=== PATIENT | male | born 1970 | race Caucasian/White ===

== ENCOUNTER 2017-02-15 14:56 | Emergency (ER) | payer OTHER ==
[~2017-02-15] VITALS: Ht 190.5 cm; Wt 90.7 kg
--- NOTE | 2017-02-15 15:31 | PHYS DOC ---
Adult General Chief Complaint Chief Complaint: NEAR SYCOPE HPI HPI Patient is a 47-year-old male who presents ambulatory to the ED complaining that he just "doesn't feel right". He lives in this area. He had been driving to the store and he began to feel unwell, felt like he might pass out. He had "tunnel vision". He pulled over for a little bit at 1 point. He about some Powerade and some orange juice and drink some, not sure if that really helped. He does not have any pain, denies headache, denies chest pain, states he does not really have abdominal pain but he feels kind of like "acid reflux, which she does have from time to time. The patient did not eat breakfast today. He drank 3 large cups of coffee. All he's had to eat is a half a bag of corn nuts. This is not terribly unusual for him. He does sometimes overdo the coffee and he gets shaky, that's not what he feels like today. Patient has been well prior to today, however, about 10 days ago he had a similar episode that wasn't this bad. He has only passed out once in his life. He states he was laughing and choked on something and leaned over and then passed out. Patient is in good general health. He did have a DVT in 2011, he was treated with Lovenox and then warfarin for about 6 months. He has not had a recurrence. They don't know why he had a DVT. No Cardiac history. Review of Systems Review of Systems Constitutional: Denies fever or chills [] HENT: Denies nasal congestion or sore throat [] Respiratory: Denies cough or shortness of breath [] Cardiovascular: Denies chest pain GI: Denies abdominal pain, nausea, vomiting, black or bloody stools or diarrhea [] Musculoskeletal: Denies back pain or joint pain [] Neurologic: Denies headache, focal weakness or sensory changes [] Allergies Allergies Allergies Coded Allergies Type Severity Reaction Last Updated Verified No Known Drug Allergies 02/15/17 No Physical Exam Physical Exam Constitutional: Well developed, well nourished, no acute distress, non-toxic appearance. Alert, mentating normally, warm and dry, vital signs stable. HENT: Normocephalic, atraumatic, bilateral external ears normal, nose normal. [ ] Eyes: conjunctiva normal, no discharge. [] Neck: Normal range of motion, no stridor. [] Cardiovascular:Heart rate regular rhythm, no murmur [] Lungs & Thorax: Bilateral breath sounds clear to auscultation [] Abdomen: Nondistended. No bruit. Skin: Warm, dry, no erythema, no rash. [] Extremities: No tenderness, no cyanosis, no clubbing, ROM intact, no edema. [] Neurologic: Alert and oriented X 3, normal motor function, no focal deficits noted. [] EKG EKG 12-lead EKG read by me. Sinus rhythm. Heart rate 61. There are no acute ST or T wave changes indicative of ischemia or infarction. No STEMI. No rhythm disturbance. 1551[] Radiology/Procedures Radiology/Procedures CT angiography of the chest read by the radiologist. No pulmonary embolism or other findings.[] Course & Med Decision Making Course & Med Decision Making Pertinent Labs and Imaging studies reviewed. (See chart for details) 47-year-old healthy male presents with some nonspecific complaints including feeling presyncopal today for longer than just a few minutes. He also had a similar episode 10 days ago. There is no clear indication of what might be causing this. I discussed with him that we will check some labs and an EKG, he is agreeable to that plan. Labs are remarkable only for an elevated d-dimer and mildly elevated glucose. I discussed with the patient that I like to rule out PE with a CT PEREZ, he is agreeable to that. The patient rested comfortably in the ED and visited with his family. His vital signs remained normal. He had no episodes of near syncope or other episodes. CT negative for pulmonary embolism. I discussed with the patient and his family that we have ruled out several things, not sure what caused his symptoms, but we 're reassured. Encouraged him to follow up with his primary care doctor. See instructions for plan. [] Dragon Disclaimer Dragon Disclaimer This chart was dictated in whole or in part using Voice Recognition software in a busy, high-work load, and often noisy Emergency Department environment. It may contain unintended and wholly unrecognized errors or omissions. Departure Departure: Impression: Primary Impression: Near syncope Disposition: HOME, SELF-CARE Condition: STABLE Referrals: CELESTINO CHENG (PCP) Additional Instructions: Today, EKG, blood tests, and CT angiography of your chest blood vessels did not identify any serious cause of your symptoms. You do not have evidence of heart attack, pulmonary embolism, or other serious causes today. Your blood sugar was slightly high at 189, but under the circumstances I would not consider that necessarily high. I do recommend that you visit your primary care doctor and consider having hemoglobin A1c testing. URIEL RIGGINS MD Feb 15, 2017 15:31
[2017-02-15 15:49] LABS: BASO % 1 % (0-3); EOS # 0.2 x10^3/uL (0.0-0.7); EOS % 2 % (0-3); HEMATOCRIT 44.8 % (39.0-53.0); HEMOGLOBIN 15.5 g/dL (13.0-17.5); LYMPH # 1.3 x10^3/uL (1.0-4.8); LYMPH % 16 % (24-48); MEAN CORPUSCULAR HEMOGLOBIN 33 pg (25-35); MEAN CORPUSCULAR HGB CONC 35 g/dL (31-37); MEAN CORPUSCULAR VOLUME 97 fL (79-100); MONO # 0.6 x10^3/uL (0.0-1.1); MONO % 7 % (0-9); NEUT % 75 % (31-73); PLATELET COUNT 167 x10^3/uL (140-400); RED BLOOD COUNT 4.64 x10^6/uL (4.30-5.70); RED CELL DISTRIBUTION WIDTH 13.9 % (11.5-14.5); WHITE BLOOD COUNT 8.1 x10^3/uL (4.0-11.0)
[2017-02-15 16:11] LABS: ALBUMIN 3.5 g/dL (3.4-5.0); ALBUMIN/GLOBULIN RATIO 1.2 (1.0-1.7); CALCIUM 8.3 mg/dL (8.5-10.1); CREATININE 0.9 mg/dL (0.7-1.3); GFR 91.3; POTASSIUM 3.7 mmol/L (3.5-5.1); TOTAL BILIRUBIN 0.3 mg/dL (0.2-1.0); TOTAL PROTEIN 6.5 g/dL (6.4-8.2)
[2017-02-15] MEDS ORDERED: IOHEXOL 300 MG/ML 75 ML VIAL. IV ONE (17:00)
[2017-02-15 17:08] VITALS: BP 137/75
--- NOTE | 2017-02-15 17:30 | RAD ---
CT ANGIOGRAPHY CHEST dated 02/15/2017 5:02 PM Indication:CTA Chest PE protocol, Short of Breath with Syncope feelings, TECHNIQUE: Omni 300 75ml was given IV. 3-D MIP reconstruction images were performed. Comparison: No comparison is available. Technique: One or more of the following individualized dose reduction techniques were utilized for this examination: 1. Automated exposure control 2. Adjustment of the mA and/or kV according to patient size 3. Use of iterative reconstruction technique Findings: There is good opacification of the pulmonary arteries. They show no filling defects to suggest pulmonary emboli. No mediastinal or hilar adenopathy is seen. There is no pleural or pericardial effusion. The thoracic aorta is normal in appearance. The lungs are clear. The upper abdomen is unremarkable. IMPRESSION: There is no evidence of pulmonary embolism. The CT angiogram the chest is within normal limits. Electronically signed by: Candice Lou MD (02/15/2017 5:26 PM) [facility]
--- NOTE | 2017-02-15 22:54 | EKG ---
[address] [address] Test Date: 2017-02-15 Test Time: 15:51:07 Pat Name: VIDAL JACOBS Department: Room: Gender: M Office Machine Technician: : 1970 Requested By: URIEL RIGGINS Order Number: [id number] Reading MD: Measurements Intervals [place] Rate: 61 P: 59 MI: 170 QRS: 45 QRSD: 98 T: 28 QT: 384 QTc: 388 Interpretive Statements SINUS RHYTHM OTHERWISE NORMAL ECG RI6.01 No previous ECG available for comparison
== END 2017-02-15 17:48 | disposition home or self-care (01) ==
LOC: ER 15:02
DX: R55 Syncope and collapse (principal); H53.489 Generalized contraction of visual field, unspecified eye
CPT/HCPCS: 36415; 71275; 80053; 82553; 83880; 84484; 85025; 85379; 85610; 85730; 93005; 99285; Q9967

== ENCOUNTER 2017-02-17 19:38 | Emergency (ER) | payer OTHER ==
[~2017-02-17] VITALS: Ht 190.5 cm; Wt 90.7 kg
--- NOTE | 2017-02-17 20:21 | RAD ---
CT head without intravenous contrast History: Headache, right facial weakness. Comparison: None. Technique: Axial images are obtained of the head from the skull base through the vertex without IV contrast. Exposure: One or more of the following individualized dose reduction techniques were utilized for this examination: 1. Automated exposure control 2. Adjustment of the mA and/or kV according to patient size 3. Use of iterative reconstruction technique Findings: The ventricles are appropriate in size, shape, and location for the patient's age. No obvious intracranial mass, mass-effect, midline shift, hemorrhage or obvious acute infarction is identified. Basilar cisterns are patent. Bone windows demonstrate no acute calvarial abnormality. The visualized paranasal sinuses appear clear. Impression: 1. No acute intracranial process. Please note that CT can be relatively insensitive to acute ischemic infarction for up to 24 hours after symptom onset. 2. Results discussed with emergency department staff, Dr. Curry, at 2015 hours. Electronically signed by: Layton Farley MD (02/17/2017 8:17 PM) [facility]
[2017-02-17 20:56] LABS: BASO # 0.1 x10^3/uL (0.0-0.2); BASO % 1 % (0-3); EOS # 0.3 x10^3/uL (0.0-0.7); EOS % 3 % (0-3); HEMOGLOBIN 15.3 g/dL (13.0-17.5); LYMPH # 2.3 x10^3/uL (1.0-4.8); LYMPH % 30 % (24-48); MEAN CORPUSCULAR HEMOGLOBIN 33 pg (25-35); MEAN CORPUSCULAR HGB CONC 35 g/dL (31-37); MEAN CORPUSCULAR VOLUME 96 fL (79-100); MONO # 0.8 x10^3/uL (0.0-1.1); MONO % 10 % (0-9); NEUT # 4.3 x10^3uL (1.8-7.7); NEUT % 56 % (31-73); PLATELET COUNT 179 x10^3/uL (140-400); RED BLOOD COUNT 4.58 x10^6/uL (4.30-5.70); RED CELL DISTRIBUTION WIDTH 13.9 % (11.5-14.5); WHITE BLOOD COUNT 7.8 x10^3/uL (4.0-11.0)
[2017-02-17] MEDS ORDERED: IOHEXOL 300 MG/ML 75 ML VIAL. IV ONE (21:00)
[2017-02-17 21:03] LABS: AMPHETAMINE/METHAMPHETAMINE NEG (NEG); BARBITURATES NEG (NEG); BENZODIAZEPINES NEG (NEG); CANNABINOIDS NEG (NEG); COCAINE NEG (NEG); METHADONE NEG (NEG); OPIATES NEG (NEG); PHENCYCLIDINE NEG (NEG)
[2017-02-17 21:07] LABS: ALBUMIN 3.8 g/dL (3.4-5.0); ALBUMIN/GLOBULIN RATIO 1.2 (1.0-1.7); CALCIUM 8.6 mg/dL (8.5-10.1); CREATININE 0.8 mg/dL (0.7-1.3); GFR 104.5; POTASSIUM 3.5 mmol/L (3.5-5.1); TOTAL BILIRUBIN 0.2 mg/dL (0.2-1.0); TOTAL PROTEIN 7.1 g/dL (6.4-8.2)
[2017-02-17] MEDS ORDERED: IV NORMAL SALINE 1,000ML 1,000 ML IV ONE ×2 (21:15→22:30)
[2017-02-17] MEDS ORDERED: PROCHLORPERAZINE 10 MG/2 ML VIAL. IV ONE ×2 (21:30→22:30)
[2017-02-17] MEDS ORDERED: METOCLOPRAMIDE HCL 10 MG/2 ML VIAL. IV ONE ×2 (21:30→22:30)
--- NOTE | 2017-02-17 22:19 | RAD ---
CT angiogram of the neck with intravenous contrast and CT angiogram of the head with intravenous contrast History: Acute onset of headache, concern for subarachnoid hemorrhage. Comparison: Negative CT head February 17, 2017. Technique: After administration of intravenous contrast, 75 mL Omnipaque-300, CT angiogram of the neck with attention to the arteries was performed. Axial 2-D reconstructions were obtained. Rotating 3-D volume rendered reconstructions of the neck arteries were also obtained. Sagittal and coronal 3-D MIPS were obtained of the neck arteries. Using the same bolus, CT angiogram of the head with attention to the arteries was performed. Axial 2-D reconstructions were obtained. Axial, sagittal, and coronal 3-D MIPS were obtained of the arteries. Rotating volume rendered reconstructions of the intracranial arteries were also obtained. Exposure: One or more of the following individualized dose reduction techniques were utilized for this examination: 1. Automated exposure control 2. Adjustment of the mA and/or kV according to patient size 3. Use of iterative reconstruction technique Findings: CTA of the neck: Bilateral common carotid, internal carotid, and external carotid arteries are patent and without evidence of stenosis or significant atherosclerotic plaquing. Dominant left vertebral artery is seen. Cervical portions of both vertebral arteries are patent. Bilateral parotid and submandibular glands appear symmetric. Bilateral internal jugular veins are patent. Thyroid is symmetric. CTA of the head: Dominant left vertebral artery is seen. Right vertebral artery is only minimal amount of vascularity to the basilar artery. Intracranial portions of both vertebral arteries are patent. Basilar artery is patent. Neither posterior communicating artery is identified. Bilateral anterior, middle, and posterior cerebral arteries are patent. Anterior commuting artery is seen. No intracranial aneurysm is identified. Dural venous sinuses enhance appropriately. Impression: 1. Negative CT angiogram of the neck and head. Stenosis calculations for CT, MR and conventional angiography are based upon measurement of the distal ICA diameter in accordance with the NASCET methodology. Stenosis calculations for carotid ultrasound studies are derived from validated velocity criteria which are known to correlate with the NASCET methodology. Electronically signed by: Layton Farley MD (02/17/2017 10:15 PM) [facility]
[2017-02-17] MEDS ORDERED: ASPIRIN 81 MG TAB.CHEW PO ONE (23:00)
--- NOTE | 2017-02-17 23:55 | ED.ADGEN ---
Past History Past Medical History: DVT, Other Past Surgical History: Other Alcohol Use: Occasionally Drug Use: None Adult General Chief Complaint Chief Complaint Headache, right facial numbness HPI HPI Patient is a 47-year-old male who presents with headache and right sided facial numbness starting approximately at 1800. Patient was lifting wood at the time and symptoms began. Patient's headache is posterior is described as dull vomiting. It is currently related as mild. Patient denies facial motor weakness , or loss of sensation, but rather reports paresthesias. Denies focal extremity weakness or loss of sensation. Denies change in vision, impaired gait or loss of balance. No other acute symptoms or complaints. She denies history of migraines, cluster headaches, and tension headaches. This is not the worst headache of the patient's life. Patient has a 35-qejz-oxyv tobacco history. He does not take medications on a daily basis. He denies history of CAD, hypertension, dyslipidemia and diabetes. He does report a family history of cardiovascular disease and states that his father had multiple strokes starting this 30s. Review of Systems Review of Systems Review symptoms as per history of present illness. All other review symptoms are negative. Current Medications Current Medications Current Medications Medications (Trade) Dose Ordered Sig/Terrance Start Time Stop Time Status Last Admin Dose Admin Aspirin (Children'S Aspirin) 162 mg 1X ONCE 02/17/17 23:00 02/17/17 23:01 DC 02/17/17 22:47 162 MG Iohexol (Omnipaque 300 Mg/ml) 75 ml 1X ONCE 02/17/17 21:00 02/17/17 21:01 DC 02/17/17 21:06 75 ML Metoclopramide HCl (Reglan) 5 mg 1X ONCE 02/17/17 22:30 02/17/17 22:31 DC 02/17/17 22:30 5 MG Prochlorperazine Edisylate (Compazine) 5 mg 1X ONCE 02/17/17 22:30 02/17/17 22:31 DC 02/17/17 22:30 5 MG Sodium Chloride 1,000 ml @ 1,000 mls/hr 1X ONCE 02/17/17 22:30 02/17/17 23:29 DC 02/17/17 22:30 1,000 MLS/HR Allergies Allergies Allergies Coded Allergies Type Severity Reaction Last Updated Verified No Known Drug Allergies 02/15/17 No Physical Exam Physical Exam Constitutional: Well developed, well nourished, no acute distress, non-toxic appearance. [] HENT: Normocephalic, atraumatic, bilateral external ears normal, oropharynx moist, no oral exudates, nose normal. [] Eyes: PERRLA, EOMI, conjunctiva normal, no discharge. [] Neck: Normal range of motion, no tenderness, supple, no stridor. [] Cardiovascular:Heart rate regular rhythm, no murmur [] Lungs & Thorax: Bilateral breath sounds clear to auscultation [] Abdomen: Bowel sounds normal, soft, no tenderness, no masses, no pulsatile masses. [] Skin: Warm, dry, no erythema, no rash. [] Back: No tenderness, no CVA tenderness. [] Extremities: No tenderness, no cyanosis, no clubbing, ROM intact, no edema. [] Neurologic: Alert and oriented X 3, right facial paresthesia, cranial nerves II through XII otherwise grossly intact, normal motor function, normal sensory function, no focal deficits noted. NIH stroke score of 1.[] Psychologic: Affect normal, judgement normal, mood normal. [] Current Patient Data Vital Signs Vital Signs Date Time Temp Pulse Resp B/P (MAP) Pulse Ox O2 Delivery O2 Flow Rate FiO2 02/17/17 23:30 65 16 118/67 (84) 94 Room Air 02/17/17 19:55 98.3 Lab Results Laboratory Tests Test 02/17/17 20:32 White Blood Count 7.8 x10^3/uL (4.0-11.0) Red Blood Count 4.58 x10^6/uL (4.30-5.70) Hemoglobin 15.3 g/dL (13.0-17.5) Hematocrit 44.0 % (39.0-53.0) Mean Corpuscular Volume 96 fL (79-100) Mean Corpuscular Hemoglobin 33 pg (25-35) Mean Corpuscular Hemoglobin Concent 35 g/dL (31-37) Red Cell Distribution Width 13.9 % (11.5-14.5) Platelet Count 179 x10^3/uL (140-400) Neutrophils (%) (Auto) 56 % (31-73) Lymphocytes (%) (Auto) 30 % (24-48) Monocytes (%) (Auto) 10 % (0-9) H Eosinophils (%) (Auto) 3 % (0-3) Basophils (%) (Auto) 1 % (0-3) Neutrophils # (Auto) 4.3 x10^3uL (1.8-7.7) Lymphocytes # (Auto) 2.3 x10^3/uL (1.0-4.8) Monocytes # (Auto) 0.8 x10^3/uL (0.0-1.1) Eosinophils # (Auto) 0.3 x10^3/uL (0.0-0.7) Basophils # (Auto) 0.1 x10^3/uL (0.0-0.2) Sodium Level 140 mmol/L (136-145) Potassium Level 3.5 mmol/L (3.5-5.1) Chloride Level 105 mmol/L (98-107) Carbon Dioxide Level 28 mmol/L (21-32) Anion Gap 7 (6-14) Blood Urea Nitrogen 13 mg/dL (8-26) Creatinine 0.8 mg/dL (0.7-1.3) Estimated GFR (Cockcroft-Gault) 104.5 BUN/Creatinine Ratio 16 (6-20) Glucose Level 76 mg/dL (70-99) Calcium Level 8.6 mg/dL (8.5-10.1) Total Bilirubin 0.2 mg/dL (0.2-1.0) Aspartate Amino Transferase (AST) 24 U/L (15-37) Alanine Aminotransferase (ALT) 31 U/L (16-63) Alkaline Phosphatase 59 U/L (46-116) Total Protein 7.1 g/dL (6.4-8.2) Albumin 3.8 g/dL (3.4-5.0) Albumin/Globulin Ratio 1.2 (1.0-1.7) Urine Opiates Screen Neg (NEG) Urine Methadone Screen Neg (NEG) Urine Barbiturates Neg (NEG) Urine Phencyclidine Screen Neg (NEG) Urine Amphetamine/Methamphetamine Neg (NEG) Urine Benzodiazepines Screen Neg (NEG) Urine Cocaine Screen Neg (NEG) Urine Cannabinoids Screen Neg (NEG) Ethyl Alcohol Level 34 mg/dL (0-10) H Urine Ethyl Alcohol Pos (NEG) EKG EKG [EKG: Sinus bradycardia, rate 54, no acute ST-T wave changes, QTC 379.] Radiology/Procedures Radiology/Procedures [CT head/CT angiogram head and neck: No acute intracranial or intravascular disease per radiology report. Chest x-ray: No acute disease on preliminary ED evaluation.] Course & Med Decision Making Course & Med Decision Making Pertinent Labs and Imaging studies reviewed. (See chart for details) [Headache with right facial numbness. CT head/CT angiogram head and neck are normal. Patient with partial improvement of symptoms while in the ED. Aspirin given. MRI and neurology service are not available at this hospital. Patient accepted at [facility] by Dr. Crocker per patient's transfer request.] Final Impression Final Impression [1. headache 2. Right facial numbness] Problems: Dragon Disclaimer Dragon Disclaimer This electronic medical record was generated, in whole or in part, using a voice recognition dictation system. SHANTELL ROCHE DO Feb 17, 2017 23:55
[2017-02-18 00:32] VITALS: BP 105/57
--- NOTE | 2017-02-18 07:55 | RAD ---
Indication: Hypertension, headache. Technique: Upright portable chest radiograph was obtained and repeated to include the lung bases. Findings: The lungs are clear. The heart is not enlarged. There is mild cephalization of pulmonary vasculature. Costophrenic angles are clear. Impression: No acute thoracic findings.
--- NOTE | 2017-02-20 10:33 | EKG ---
[facility] [address] [place] [address] Test Date: 2017-02-17 Test Time: 21:29:08 Pat Name: VIDAL JACOBS Department: Room: Gender: M Floral Assistant: : 1970 Requested By: SHANTELL ROCHE Order Number: [id number] Reading MD: Measurements Intervals [place] Rate: P: IN: QRS: QRSD: T: QT: QTc: Interpretive Statements
== END 2017-02-18 00:50 | disposition short-term general hospital (02) ==
LOC: ER 19:38
DX: R20.0 Anesthesia of skin (principal); R51 Headache; Z86.718 Personal history of other venous thrombosis and embolism; Z87.891 Personal history of nicotine dependence
CPT/HCPCS: 36415; 70450; 70496; 70498; 71010; 80053; 80307; 85025; 93005; 96374; 96375; 99285; G0480; J0780; J2765; Q9967; G0479; J7030

== ENCOUNTER → 2020-07-17 | Outpatient (CLI) | payer OTHER ==
--- NOTE | 2020-07-17 12:52 | RAD ---
EXAMINATION: US BILATERAL LOWEREXTREMITY VENOUS DOPPLER, 07/17/2020 11:55 AM CLINICAL INDICATION: Right lower extremity pain and swelling, history of DVT. COMPARISON: None PROCEDURE: Multiple grayscale, color Doppler and spectral Doppler sonographic images of the bilateral lower extremities were obtained. FINDINGS: The right peroneal vein is noncompressible with no color Doppler blood flow, consistent wit h deep venous thrombosis. The right common femoral, superficial femoral, popliteal, posterior tibial veins are patent. The left common femoral, superficial femoral, popliteal, and calf veins are patent. IMPRESSION: 1. Positive exam for deep venous thrombosis in the right peroneal vein. 2. No deep venous thrombosis in the left lower extremity. FOR INTERNAL CODING PURPOSES Critical result: Findings discussed with Dr. Delgado at 07/17/2020 12:48 PM. RESULT CODE: (C) Electronically signed by: Shani Fletcher MD (07/17/2020 12:49 PM) [id number]
== END ==
LOC: US 11:49
PROVIDERS: ATTEND Family Medicine
DX: I82.451 Acute embolism and thrombosis of right peroneal vein (principal); M25.471 Effusion, right ankle; Z86.718 Personal history of other venous thrombosis and embolism
CPT/HCPCS: 93970

== ENCOUNTER 2021-03-24 15:48 | Emergency (ER) | payer OTHER ==
[~2021-03-24] VITALS: Ht 190.5 cm; Wt 106.4 kg
[2021-03-24 15:48] VITALS: BP 139/77
--- NOTE | 2021-03-24 16:36 | PHYS DOC ---
Past History Past Medical History: DVT, Other Past Surgical History: Other Alcohol Use: Occasionally Drug Use: None General Adult EDM: Chief Complaint: LOWER EXT PAIN HPI: HPI: 51-year-old male presents with tingling sensation in the right side of his face. The patient has a diagnosed DVT in the right lower leg. He is on aspirin and Xarelto. He has been on this for several months but has had increased pain in the lower leg. He had an ultrasound at the [place] which confirmed he still has a DVT in that leg and that it appears chronic. Today, the patient had a sudden sharp feeling of pain in the same lower leg. After the pain, the patient felt like the right side of his face felt "tingly". It is a mild sensation, but it is not completely gone away. He is just worried about a piece of the clot breaking off and causing neuro symptoms. He denies change in voice, weakness, change in balance, altered sensation. Review of Systems: Review of Systems: Constitutional: Denies fever or chills Eyes: Denies change in visual acuity HENT: Change in sensation right face. Denies nasal congestion or sore throat Respiratory: Denies cough or shortness of breath Cardiovascular: Denies chest pain or edema GI: Denies abdominal pain, nausea, vomiting, bloody stools or diarrhea : Denies dysuria Musculoskeletal: Denies back pain or joint pain Integument: Denies rash Neurologic: Denies headache, focal weakness or sensory changes Endocrine: Denies polyuria or polydipsia Lymphatic: Denies swollen glands Psychiatric: Denies depression or anxiety Allergies: Allergies: Allergies Coded Allergies Type Severity Reaction Last Updated Verified No Known Drug Allergies 02/15/17 No Physical Exam: PE: Constitutional: Well developed, well nourished, no acute distress, non-toxic appearance. [] HENT: Normocephalic, atraumatic, bilateral external ears normal, oropharynx moist, no oral exudates, nose normal. [] Eyes: PERRLA, EOMI, conjunctiva normal, no discharge. [] Neck: Normal range of motion, no tenderness, supple, no stridor. [] Cardiovascular: Heart rate regular rhythm, no murmur [] Lungs & Thorax: Bilateral breath sounds clear to auscultation [] Abdomen: Bowel sounds normal, soft, no tenderness, no masses, no pulsatile masses. [] Skin: Warm, dry, no erythema, no rash. [] Back: No tenderness, no CVA tenderness. [] Extremities: No tenderness, no cyanosis, no clubbing, ROM intact, no edema. [] Neurologic: Alert and oriented X 3, normal motor function, normal sensory function, no focal deficits noted. [] Psychologic: Affect normal, judgement normal, mood normal. [] EKG: EKG: [] Radiology/Procedures: Radiology/Procedures: [] Impressions: Exam performed: CT scan of the head without contrast. Date of Service: 03/24/2021. Comparison: CT head without contrast from 02/17/2017. Clinical History: Altered sensation on the right side. Technique: Helical acquisitions are obtained from the foramen magnum to the vertex without intravenous administration of contrast. Findings: The ventricles are midline without evidence of dilatation. Normal marr-white differentiation is maintained. There is no extra axial fluid collection, intraparenchymal hemorrhage or mass lesion. The visualized portions of the orbits, paranasal sinuses and the mastoid air cells appear clear. The calvarium is intact. Impression: 1. No acute intracranial process detected. RS Compliance Statement: One or more of the following individualized dose reduction techniques were utilized for this examination: 1. Automated exposure control 2. Adjustment of the mA and/or kV according to patient size 3. Use of iterative reconstruction technique Electronically signed by: Meghan Varner MD (03/24/2021 5:26 PM) [facility] DICTATED AND SIGNED BY: MEGHAN VARNER MD DATE: 03/24/21 1726 CC: SHANTELL TOURE DO; MATEO BARKLEY DO ~MTH0 0 Heart Score: C/O Chest Pain: N/A Risk Factors: Risk Factors: DM, Current or recent (<one month) smoker, HTN, HLP, family history of CAD, obesity. Risk Scores: Score 0 - 3: 2.5% MACE over next 6 weeks - Discharge Home Score 4 - 6: 20.3% MACE over next 6 weeks - Admit for Clinical Observation Score 7 - 10: 72.7% MACE over next 6 weeks - Early Invasive Strategies Course & Med Decision Making: Course & Med Decision Making Pertinent Labs and Imaging studies reviewed. (See chart for details) Patient's labs are unremarkable. His head CT is unremarkable. The patient does not have significant symptoms to be clinically concerned with stroke. I cannot completely rule out a small thrombus, but I do not see focal findings and the patient is already on antiplatelet and anticoagulant medications. I believe he is safe to be discharged home. If his symptoms worsen in any way he should come back to the emergency room. He can follow-up with his primary care provider as needed. He is stable for discharge at this time. [] Dragon Disclaimer: Dragon Disclaimer: This electronic medical record was generated, in whole or in part, using a voice recognition dictation system. Departure Departure: Impression: Primary Impression: Alterations of sensations Additional Impression: DVT (deep venous thrombosis) Qualified Codes: I82.501 - Chronic embolism and thrombosis of unspecified deep veins of right lower extremity Referrals: MATEO BARKLEY DO (PCP) Patient Instructions: Deep Vein Thrombosis SHANTELL TOURE DO Mar 24, 2021 16:36
[2021-03-24 17:02] LABS: BASO # 0.1 x10^3/uL (0.0-0.2); BASO % 1 % (0-3); EOS # 0.2 x10^3/uL (0.0-0.7); EOS % 4 % (0-3); HEMOGLOBIN 14.8 g/dL (13.0-17.5); LYMPH # 1.5 x10^3/uL (1.0-4.8); LYMPH % 27 % (24-48); MEAN CORPUSCULAR HEMOGLOBIN 32 pg (25-35); MEAN CORPUSCULAR HGB CONC 34 g/dL (31-37); MEAN CORPUSCULAR VOLUME 94 fL (79-100); MONO # 0.6 x10^3/uL (0.0-1.1); MONO % 11 % (0-9); NEUT # 3.2 x10^3uL (1.8-7.7); NEUT % 57 % (31-73); PLATELET COUNT 178 x10^3/uL (140-400); RED BLOOD COUNT 4.69 x10^6/uL (4.30-5.70); RED CELL DISTRIBUTION WIDTH 13.3 % (11.5-14.5); WHITE BLOOD COUNT 5.5 x10^3/uL (4.0-11.0)
[2021-03-24 17:08] LABS: CALCIUM 9.1 mg/dL (8.5-10.1); CREATININE 0.9 mg/dL (0.7-1.3); GFR 89.7; POTASSIUM 3.8 mmol/L (3.5-5.1)
[2021-03-24 17:13] LABS: ALBUMIN 3.4 g/dL (3.4-5.0); TOTAL BILIRUBIN 0.3 mg/dL (0.2-1.0); TOTAL PROTEIN 6.7 g/dL (6.4-8.2)
--- NOTE | 2021-03-24 17:29 | RAD ---
Exam performed: CT scan of the head without contrast. Date of Service: 03/24/2021. Comparison: CT head without contrast from 02/17/2017. Clinical History: Altered sensation on the right side. Technique: Helical acquisitions are obtained from the foramen magnum to the vertex without intravenou s administration of contrast. Findings: The ventricles are midline without evidence of dilatation. Normal marr-white differentiation is maint ained. There is no extra axial fluid collection, intraparenchymal hemorrhage or mass lesion. The vi sualized portions of the orbits, paranasal sinuses and the mastoid air cells appear clear. The avinash rium is intact. Impression: 1. No acute intracranial process detected. PQRS Compliance Statement: One or more of the following individualized dose reduction techniques were utilized for this examinat ion: 1. Automated exposure control 2. Adjustment of the mA and/or kV according to patient size 3. Use of iterative reconstruction technique Electronically signed by: Meghan Varner MD (03/24/2021 5:26 PM) [facility]
== END 2021-03-24 18:07 | disposition home or self-care (01) ==
LOC: ER 15:48
DX: I82.401 Acute embolism and thrombosis of unspecified deep veins of right lower extremity (principal)
CPT/HCPCS: 36415; 70450; 80053; 85025; 99284-25